=== PATIENT | female | born 1990 | race Caucasian/White ===

== ENCOUNTER → 2016-03-24 | Outpatient (CLI) | payer OTHER ==
[~2016-03-24] MED LIST: ATV/1 PO; GUAN1TAB12 PO; NORE1TAB3 PO; ONDA4TAB46 PO; VORT10TA12 PO
[2016-03-24 17:17] LABS: BASO % 0.2 %; BASO ABS # 0.01 K/uL (0-0.2); COMPLETE YES; EOS % 1.4 %; HEMATOCRIT 37.7 % (37-47); LYMPH % 37.5 %; LYMPH ABS # 1.93 K/uL (1.2-3.4); MEAN CELL VOLUME 87.5 fL (80-100); MEAN CORPUSCULAR HEMOGLOBIN 29.5 pg (25-34); MEAN CORPUSCULAR HGB CONC 33.7 g/dl (32-36); MEAN PLATELET VOLUME 9.2 fL (7.4-10.4); MONO % 10.7 %; NEUT % 50.2 %; PLATELET COUNT 301 K/uL (130-400); RED BLOOD COUNT 4.31 M/uL (4.2-5.4); WHITE BLOOD COUNT 5.14 K/uL (4.8-10.8)
[2016-03-24 17:45] LABS: ESTIMATED AVERAGE GLUCOSE 94 mg/dl; HA1C FLAG Normal (Normal)
[2016-03-24 17:46] LABS: ALT/SGPT 18 U/L (12-78); BLOOD UREA NITROGEN 11 mg/dl (7-18); BUN/CREATININE RATIO 13.6 (10-20); CALCIUM 9.2 mg/dl (8.5-10.1); CARBON DIOXIDE 24 mmol/L (21-32); CHLORIDE 105 mmol/L (98-107); CHOLESTEROL 212 mg/dl (0-200); CREATININE 0.83 mg/dl (0.60-1.20); GLUCOSE 77 mg/dl (70-99); POTASSIUM 4.3 mmol/L (3.5-5.1); SODIUM 139 mmol/L (136-145)
[2016-03-24 17:54] LABS: ALB/GLOB RATIO 0.9 (0.9-2); ALKALINE PHOSPHATASE 57 U/L (45-117); AST/SGOT 17 U/L (15-37); CHOLESTEROL/HDL RATIO 2.7; HDL CHOLESTEROL 78 mg/dl; LDL CHOLESTEROL CALCULATED 114 mg/dl; TRIGLYCERIDES 101 mg/dl (0-150); VERY LOW DENSITY LIPOPROT CALC 20 mg/dl
[2016-03-27 16:04] LABS: EPSTEIN BARR VIR CAPSID IGG 1.87 INDEX
== END | disposition home or self-care (01) ==
LOC: C.LAB1850 16:00
PROVIDERS: ATTEND Urology
DX: G93.3 Postviral and related fatigue syndromes (principal); Z79.899 Other long term (current) drug therapy

== ENCOUNTER → 2016-05-09 | Outpatient (CLI) | payer OTHER ==
[2016-05-09 16:52] LABS: BASO % 0.4 %; BASO ABS # 0.02 K/uL (0-0.2); COMPLETE YES; EOS % 1.1 %; HEMATOCRIT 39.8 % (37-47); IG% 0.2 %; LYMPH % 36.2 %; MEAN CELL VOLUME 89.2 fL (80-100); MEAN CORPUSCULAR HGB CONC 33.7 g/dl (32-36); MEAN PLATELET VOLUME 9.2 fL (7.4-10.4); NEUT % 53.1 %; PLATELET COUNT 231 K/uL (130-400); RED BLOOD COUNT 4.46 M/uL (4.2-5.4); WHITE BLOOD COUNT 5.53 K/uL (4.8-10.8)
[2016-05-09 17:10] LABS: ALT/SGPT 18 U/L (12-78); BLOOD UREA NITROGEN 10 mg/dl (7-18); BUN/CREATININE RATIO 11.4 (10-20); CALCIUM 9.5 mg/dl (8.5-10.1); CARBON DIOXIDE 27 mmol/L (21-32); CHLORIDE 104 mmol/L (98-107); CREATININE 0.86 mg/dl (0.60-1.20); GLUCOSE 97 mg/dl (70-99); POTASSIUM 4.2 mmol/L (3.5-5.1); SODIUM 138 mmol/L (136-145)
[2016-05-09 17:13] LABS: ALB/GLOB RATIO 0.9 (0.9-2); ALKALINE PHOSPHATASE 60 U/L (45-117); AST/SGOT 15 U/L (15-37)
--- NOTE | 2016-05-09 17:17 | DIAGNOSTIC IMAGING REPORT ---
CHEST 2 VIEWS ROUTINE CLINICAL HISTORY: R06.02 dyspnea COMPARISON STUDY: No previous studies for comparison. FINDINGS: The bones soft tissues and hemidiaphragms are normal. The cardiomediastinal silhouette is normal. The lungs are clear. The pulmonary vasculature is normal. IMPRESSION: Negative chest. Electronically signed by: Levar Michelle M.D. 05/09/2016 5:15 PM Dictated Date/Time: 05/09/2016 5:15 PM
== END | disposition home or self-care (01) ==
LOC: C.RAD 16:26
PROVIDERS: ATTEND Nurse Practitioner Adult Health
DX: B27.90 Infectious mononucleosis, unspecified without complication (principal); R53.83 Other fatigue; R06.02 Shortness of breath; R05 Cough

== ENCOUNTER → 2016-06-15 | Outpatient (CLI) | payer OTHER ==
[2016-06-15 12:23] LABS: TOTAL IRON BINDING CAPACITY 412 mcg/dl (250-450)
[2016-06-15 13:01] LABS: URINE APPEARANCE CLEAR (CLEAR); URINE BILIRUBIN NEG (NEG); URINE COLOR YELLOW; URINE EPITHELIAL CELL AUTO >30 /lpf (0-5); URINE NITRITE NEG (NEG); URINE SPECIFIC GRAVITY 1.021 (1.000-1.030); UROBILINOGEN NEG (NEG); ZZUR CULT IF INDIC CLEAN CATCH NO
[2016-06-15 13:10] LABS: MANUAL MICROSCOPIC REQUIRED? NO; REVIEW REQ? NO
[2016-06-20 16:13] LABS: EBV EARLY ANTIGEN AB <0.91 INDEX; EPSTEIN BARR VIR CAPSID IGG 2.27 INDEX
== END | disposition home or self-care (01) ==
LOC: C.LAB1850 10:03
PROVIDERS: ATTEND Physician Assistant
DX: R30.0 Dysuria (principal); R53.83 Other fatigue

== ENCOUNTER 2016-06-24 18:54 | Emergency (ER) | payer OTHER ==
[~2016-06-24] VITALS: Ht 157.5 cm; Wt 62.9 kg
[~2016-06-24 18:54] MED LIST changes: -ONDA4TAB46 PO; -VORT10TA12 PO
[2016-06-24 19:04] VITALS: TEMP 36.7; Ht 157.5 cm; Wt 62.9 kg
[2016-06-24 19:35] LABS: BASO % 0.1 %; BASO ABS # 0.01 K/uL (0-0.2); COMPLETE YES; EOS % 2.1 %; HEMATOCRIT 42.8 % (37-47); LYMPH % 33.2 %; LYMPH ABS # 2.22 K/uL (1.2-3.4); MEAN CELL VOLUME 88.2 fL (80-100); MEAN CORPUSCULAR HEMOGLOBIN 29.7 pg (25-34); MEAN CORPUSCULAR HGB CONC 33.6 g/dl (32-36); MEAN PLATELET VOLUME 9.3 fL (7.4-10.4); NEUT % 54.6 %; PLATELET COUNT 320 K/uL (130-400); RED BLOOD COUNT 4.85 M/uL (4.2-5.4); WHITE BLOOD COUNT 6.68 K/uL (4.8-10.8)
[2016-06-24 19:40] LABS: URINE APPEARANCE CLEAR (CLEAR); URINE BILIRUBIN NEG (NEG); URINE COLOR DK YELLOW; URINE EPITHELIAL CELL AUTO >30 /lpf (0-5); URINE NITRITE NEG (NEG); URINE PH 6.5 (4.5-7.5); URINE SPECIFIC GRAVITY 1.025 (1.000-1.030); UROBILINOGEN NEG (NEG); ZZUR CULT IF INDIC CLEAN CATCH NO
[2016-06-24 19:42] LABS: MANUAL MICROSCOPIC REQUIRED? NO; REVIEW REQ? NO
[2016-06-24] MEDS ORDERED: VORT10TA12 PO (19:46)
[2016-06-24] MEDS ORDERED: ONDA4TAB46 PO (19:47)
[2016-06-24 19:51] LABS: ALT/SGPT 18 U/L (12-78); AST/SGOT 17 U/L (15-37); BLOOD UREA NITROGEN 8 mg/dl (7-18); BUN/CREATININE RATIO 7.9 (10-20); CALCIUM 9.7 mg/dl (8.5-10.1); CARBON DIOXIDE 26 mmol/L (21-32); CHLORIDE 106 mmol/L (98-107); CREATININE 0.97 mg/dl (0.60-1.20); GLUCOSE 103 mg/dl (70-99); POTASSIUM 3.9 mmol/L (3.5-5.1); SODIUM 140 mmol/L (136-145)
[2016-06-24 19:54] LABS: ALKALINE PHOSPHATASE 70 U/L (45-117)
[2016-06-24] MEDS ORDERED: OPTIRAY 320 IV PRN (20:30)
--- NOTE | 2016-06-24 20:31 | DIAGNOSTIC IMAGING REPORT ---
ABDOMEN AND PELVIS CT WITH IV CONTRAST CT DOSE: 269.95 mGy.cm HISTORY: Flank pain left sided abd pain TECHNIQUE: Multiaxial CT images of the abdomen and pelvis were performed following the use of intravenous contrast. COMPARISON STUDY: None. FINDINGS: Lung bases are clear. Liver spleen and pancreas are uniform. Kidneys enhance appropriately. They're negative for hydronephrosis. Bowel pattern is remarkable for a slight degree of wall thickening of the descending and sigmoid colonic regions. There is a trace amount of pericolonic infiltrative change. This appearance is consistent with a nonspecific colitis. Bowel pattern overall is nonobstructive. There is no significant free fluid within the pelvic cul-de-sac. IMPRESSION: Mild nonspecific colitis involving the descending as well as proximal sigmoid colonic region. No evidence for abscess collection or obstruction. Electronically signed by: Levar Michelle M.D. 06/24/2016 8:29 PM Dictated Date/Time: 06/24/2016 8:27 PM
[2016-06-24 21:00] VITALS: BP 124/88; PULSE 67; O2SAT 97
--- NOTE | 2016-06-24 22:26 | EMERGENCY ROOM VISIT NOTE ---
History Report prepared by Burton: Lorne Mckoy Under the Supervision of: Dr. Shadi Mcdonald D.O. First contact with patient: 19:08 Chief Complaint: ABDOMINAL PAIN Stated Complaint: LF SIDE ABD PRESSURE History of Present Illness The patient is a 25 year old female who presents to the Emergency Room with complaints of constant LLQ abdominal pain beginning yesterday. She describes the pain as a sensation of "pressure". She states that she noticed bright red blood around her stool beginning yesterday as well. The patient states that her stool has been hard and she has had to strain a lot. She has had this several times before in the past. She has no known history of hemorrhoids. She states that the bleeding began with the hard stool. The patient also complains of vomiting yesterday, but notes that she did not vomit today. She notes that she was diagnosed with Mononucleosis around three months ago. Pt denies headache, change in vision, fevers, chest pain, shortness of breath, urinary symptoms, and melena. Source of History: patient Onset: yesterday Position: abdomen (LLQ) Timing: constant Associated Symptoms: + hematochezia, + vomiting, No SOB, No chest pain, No chills, No fevers, No urinary symptoms Review of Systems See HPI for pertinent positives & negatives. A total of 10 systems reviewed and were otherwise negative. Past Medical & Surgical Medical Problems: (1) ADHD (attention deficit hyperactivity disorder) (2) Anxiety (3) Bipolar disorder (4) Depression (5) Dysmenorrhea (6) Endometriosis (7) Panic disorder Family History Cancer Diabetes mellitus Hypertension Social History Smoking Status: Former Smoker Alcohol Use: occasionally Marital Status: in relationship Housing Status: lives with significant other Occupation Status: [employer] student Current/Historical Medications Scheduled Norethin Acet & Estrad-Fe (02/24), 1 TAB PO DAILY Vortioxetine HBr (Trintellix), 10 MG PO DAILY Scheduled PRN Ondansetron Hcl (Zofran), 2 MG PO Q6 PRN for Nausea Allergies Coded Allergies: No Known Allergies (Unverified , 05/16/15) Physical Exam Vital Signs Date Time Temp Pulse Resp B/P Pulse Ox O2 Delivery O2 Flow Rate FiO2 06/24/16 21:00 67 18 124/88 97 Room Air 06/24/16 19:04 36.7 81 18 137/87 99 Room Air Physical Exam GENERAL: Sitting up in bed, alert, well appearing, well nourished, no distress, non-toxic EYE EXAM: normal conjunctiva OROPHARYNX: no exudate, no erythema, lips, buccal mucosa, and tongue normal and mucous membranes are moist NECK: supple, no nuchal rigidity, no adenopathy, non-tender LUNGS: Clear to auscultation. Normal chest wall mechanics HEART: no murmurs, S1 normal and S2 normal ABDOMEN: abdomen soft, normo-active bowel sounds, no masses, no rebound or guarding. Tenderness to palpation of the left upper and left lower quadrants. BACK: Back is symmetrical on inspection and there is no deformity, no midline tenderness, no CVA tenderness. RECTAL: No external hemorrhoids. Heme negative. SKIN: no rashes and no bruising UPPER EXTREMITIES: upper extremities are grossly normal. LOWER EXTREMITIES: No pitting edema. NEURO EXAM: Normal sensorium, cranial nerves II-XII grossly intact, normal speech, no gross weakness of arms, no gross weakness of legs. Medical Decision & Procedures ER Provider Diagnostic Interpretation: Radiology results as stated below per my review and the radiologist's interpretation: ABDOMEN AND PELVIS CT WITH IV CONTRAST FINDINGS: Lung bases are clear. Liver spleen and pancreas are uniform. Kidneys enhance appropriately. They're negative for hydronephrosis. Bowel pattern is remarkable for a slight degree of wall thickening of the descending and sigmoid colonic regions. There is a trace amount of pericolonic infiltrative change. This appearance is consistent with a nonspecific colitis. Bowel pattern overall is nonobstructive. There is no significant free fluid within the pelvic cul-de-sac. IMPRESSION: Mild nonspecific colitis involving the descending as well as proximal sigmoid colonic region. No evidence for abscess collection or obstruction. Electronically signed by: Levar Michelle M.D. Laboratory Results 06/24/16 19:24 Red Blood Count 4.85, Mean Corpuscular Volume 88.2, Mean Corpuscular Hemoglobin 29.7, Mean Corpuscular Hemoglobin Concent 33.6, Mean Platelet Volume 9.3, Neutrophils (%) (Auto) 54.6, Lymphocytes (%) (Auto) 33.2, Monocytes (%) (Auto) 10.0, Eosinophils (%) (Auto) 2.1, Basophils (%) (Auto) 0.1, Neutrophils # (Auto ) 3.64, Lymphocytes # (Auto) 2.22, Monocytes # (Auto) 0.67, Eosinophils # (Auto ) 0.14, Basophils # (Auto) 0.01 06/24/16 19:24 Test 06/24/16 19:24 White Blood Count 6.68 K/uL (4.8-10.8) Red Blood Count 4.85 M/uL (4.2-5.4) Hemoglobin 14.4 g/dL (12.0-16.0) Hematocrit 42.8 % (37-47) Mean Corpuscular Volume 88.2 fL (80-100) Mean Corpuscular Hemoglobin 29.7 pg (25-34) Mean Corpuscular Hemoglobin Concent 33.6 g/dl (32-36) Platelet Count 320 K/uL (130-400) Mean Platelet Volume 9.3 fL (7.4-10.4) Neutrophils (%) (Auto) 54.6 % Lymphocytes (%) (Auto) 33.2 % Monocytes (%) (Auto) 10.0 % Eosinophils (%) (Auto) 2.1 % Basophils (%) (Auto) 0.1 % Neutrophils # (Auto) 3.64 K/uL (1.4-6.5) Lymphocytes # (Auto) 2.22 K/uL (1.2-3.4) Monocytes # (Auto) 0.67 K/uL (0.11-0.59) Eosinophils # (Auto) 0.14 K/uL (0-0.5) Basophils # (Auto) 0.01 K/uL (0-0.2) RDW Standard Deviation 40.4 fL (36.4-46.3) RDW Coefficient of Variation 12.7 % (11.5-14.5) Immature Granulocyte % (Auto) 0.0 % Immature Granulocyte # (Auto) 0.00 K/uL (0.00-0.02) Urine Color DK YELLOW Urine Appearance CLEAR (CLEAR) Urine pH 6.5 (4.5-7.5) Urine Specific [place] 1.025 (1.000-1.030) Urine Protein TRACE (NEG) Urine Glucose (UA) NEG (NEG) Urine Ketones TRACE (NEG) Urine Occult Blood NEG (NEG) Urine Nitrite NEG (NEG) Urine Bilirubin NEG (NEG) Urine Urobilinogen NEG (NEG) Urine Leukocyte Esterase NEG (NEG) Urine WBC (Auto) 1-5 /hpf (0-5) Urine RBC (Auto) 0-4 /hpf (0-4) Urine Hyaline Casts (Auto) 5-10 /lpf (0-5) Urine Epithelial Cells (Auto) >30 /lpf (0-5) Urine Bacteria (Auto) NEG (NEG) Urine Test NEG (NEG) Anion Gap 8.0 mmol/L (3-11) Est Creatinine Clear Calc Drug Dose 78.6 ml/min Estimated GFR () 95.4 Estimated GFR (Non- 82.3 BUN/Creatinine Ratio 7.9 (10-20) Calcium Level 9.7 mg/dl (8.5-10.1) Total Bilirubin 0.3 mg/dl (0.2-1) Direct Bilirubin < 0.1 mg/dl (0-0.2) Aspartate Amino Transf (AST/SGOT) 17 U/L (15-37) Alanine Aminotransferase (ALT/SGPT) 18 U/L (12-78) Alkaline Phosphatase 70 U/L (45-117) Total Protein 8.9 gm/dl (6.4-8.2) Albumin 4.2 gm/dl (3.4-5.0) Lipase 322 U/L (73-393) Laboratory results per my review. ED Course ED COURSE: Vital signs were reviewed and appeared normal The patients medical record was reviewed The above diagnostic studies were performed and reviewed. ED treatments and interventions as stated above. 1913: The patient was evaluated in room A2. A complete history and physical examination was performed. 2119: Upon reevaluation, the patient is resting comfortably. I discussed my findings with the patient and her understands and agrees with the treatment plan. Based on the patients age, coexisting illnesses, exam and lab findings the decision to treat as an outpatient was made. The patient remained stable while under my care. The patient appeared well at the time of discharge. Medical Decision Differential diagnoses includes but is not limited to gastritis, peptic ulcer disease, GERD, gallbladder disease, pancreatitis, small bowel obstruction, acute coronary syndrome, pericarditis, ischemic bowel, irritable bowel disease, irritable bowel syndrome, appendicitis, diverticulitis, malignancy, hernia, urinary tract infection, torsion, /ectopic , perforation, trauma, infectious. Patient is a 25-year-old female who presents the ER for left lower quadrant and left upper quadrant abdominal pain. She notes that this started yesterday while eating dinner. Previous diagnosis of mono. No other medical problems. No other medications. On exam she has faint tenderness to palpation. Vitals are unremarkable. She has been eating and drinking today without difficulty. CT of her abdomen pelvis shows mild thickening of the descending colon. LMP 3 weeks ago. No vaginal bleeding or vaginal discharge. CBC along with BMP, LFTs , bilirubin and lipase are normal. UA was negative. She was negative. Rectal was negative. Based on her findings I do believe the bleeding is likely consistent with internal hemorrhoid as it occurs with straining but cannot be positive. With a normal hemoglobin and unremarkable labs I felt it was reasonable to discharge her and have her follow-up with GI as an outpatient. Impression Primary Impression: Abdominal pain Scribe Attestation The scribe's documentation has been prepared under my direction and personally reviewed by me in its entirety. I confirm that the note above accurately reflects all work, treatment, procedures, and medical decision making performed by me. Departure Information Dispostion Home / Self-Care Referrals No Doctor, Assigned (PCP) Forms HOME CARE DOCUMENTATION FORM, IMPORTANT VISIT INFORMATION Patient Instructions Abdominal Pain - [facility], [facility] Additional Instructions Please follow up with your primary care doctor with in the next 24 hours. Any worsening of your symptoms, please return to the ED immediately. This includes worsening pain, persistent nausea vomiting, passing out, increased bloody stool , or any other concerning signs or symptoms from your standpoint. Please follow up with GI as listed below. Problem Qualifiers Primary Impression: Abdominal pain Abdominal location: unspecified location Qualified Codes: R10.9 - Unspecified abdominal pain
== END 2016-06-24 21:27 | disposition home or self-care (01) ==
LOC: C.EDB 18:55 → C.EDA 21:27
DX: R10.32 Left lower quadrant pain (principal); R10.12 Left upper quadrant pain; F90.9 Attention-deficit hyperactivity disorder, unspecified type; F41.0 Panic disorder [episodic paroxysmal anxiety]; F31.9 Bipolar disorder, unspecified; F32.9 Major depressive disorder, single episode, unspecified; N94.6 Dysmenorrhea, unspecified; N80.9 Endometriosis, unspecified; Z80.9 Family history of malignant neoplasm, unspecified; Z83.3 Family history of diabetes mellitus; Z82.49 Family history of ischemic heart disease and other diseases of the circulatory system; Z87.891 Personal history of nicotine dependence; Z79.899 Other long term (current) drug therapy

== ENCOUNTER → 2016-06-29 | Outpatient (CLI) | payer OTHER ==
[~2016-06-29] MED LIST changes: -ATV/1 PO; -GUAN1TAB12 PO; +ONDA4TAB46 PO; +VORT10TA12 PO
[2016-06-29 16:45] LABS: AMYLASE 86 U/L (25-115)
[2016-06-29 17:51] LABS: LYME DISEASE AB IGG NEG (NEG); LYME DISEASE AB IGM NEG (NEG)
== END | disposition home or self-care (01) ==
LOC: C.LAB1850 14:33
PROVIDERS: ATTEND Nurse Practitioner Adult Health
DX: M25.60 Stiffness of unspecified joint, not elsewhere classified (principal); R68.89 Other general symptoms and signs; R10.9 Unspecified abdominal pain; R11.2 Nausea with vomiting, unspecified; R53.83 Other fatigue

== ENCOUNTER → 2016-07-31 | Outpatient (CLI) | payer OTHER ==
[2016-07-31 17:17] LABS: MANUAL MICROSCOPIC REQUIRED? NO; REVIEW REQ? NO; URINE APPEARANCE CLOUDY (CLEAR); URINE BILIRUBIN NEG (NEG); URINE COLOR DK YELLOW; URINE NITRITE NEG (NEG); URINE SPECIFIC GRAVITY 1.021 (1.000-1.030); UROBILINOGEN NEG (NEG); ZZUR CULT IF INDIC CLEAN CATCH YES
== END | disposition home or self-care (01) ==
LOC: C.LAB1850 16:05
PROVIDERS: ATTEND Nurse Practitioner Adult Health
DX: R30.0 Dysuria (principal)